=== PATIENT | female | born 1975 | race Caucasian/White ===

== ENCOUNTER 2018-08-14 10:03 | Day surgery (SDC) | payer BC, OTHER ==
[2018-08-11 17:57] VITALS: BMI 29.3
[~2018-08-14] VITALS: Ht 157.5 cm; Wt 73.5 kg
[2018-08-14] VITALS (13 sets, daily range): BP systolic 85–110; BP diastolic 51–68; PULSE 54–82; RESP 13–24; Ht 157.5 cm; Wt 73.5 kg
[~2018-08-14 10:03] MED LIST: CEFAZOLIN 2 GM/50 ML (PMX) 50 ML IVPB SCH; SOD CHLORIDE 0.9% 1,000 ML IV SCH
[2018-08-14] MEDS ORDERED: FENTAnyl 50 MCG/ML VIAL ONE (13:44)
[2018-08-14] MEDS ORDERED: MIDAZOLAM 1 MG/ML 2 ML INJ ONE (13:45)
[2018-08-14] MEDS ORDERED: ONDANSETRON 4 MG INJ ONE (13:46)
[2018-08-14] MEDS ORDERED: PROPOFOL 20 ML ONE (13:46)
[2018-08-14] MEDS ORDERED: LIDOCAINE 2% (SDV) 5 ML INJ ONE (13:46)
[2018-08-14] MEDS ORDERED: METOCLOPRAMIDE 10 MG INJ ONE (13:46)
[2018-08-14] MEDS ORDERED: CEFAZOLIN 1 GM INJ ONE (14:09)
--- NOTE | 2018-08-14 14:57 | PREAC ---
Date/Time of Note Date/Time of Note DATE: 08/14/18 TIME: 14:56 Anesthesia Eval and Record Evaluation Time Pre-Procedure Interview DATE: 08/14/18 TIME: 14:56 Age 43 Sex female NPO: 8 hrs Preoperative diagnosis breast implant deformity Planned procedure b/l removal breast implants Past Medical History Past Medical History: Includes Pulm: Smoking Hx Surgery & Anesthesia Issues No known issue Meds Anticoagulation: No Beta Lee within 24 hr: No Reason Beta Lee not given: Pt. not on B-Lee No Active Prescriptions or Reported Meds Meds reviewed: Yes Allergies Coded Allergies: No Known Allergy (Unverified , 08/14/18) Allergies Reviewed: Yes Labs/Studies Labs Reviewed: Reviewed by anesthesiologist test: Negative Pre-procedure Exam Last vitals Vital Signs Date Temp Pulse Resp B/P (MAP) Pulse Ox O2 O2 Flow FiO2 Time Delivery Rate 08/14/18 97.4 82 16 110/58 100 13:41 (75) Airway: Adequate mouth opening, Adequate thyromental dist Mallampati: Mallampati III Teeth: Normal Lung: Normal Heart: Normal ASA Physical Status ASA physical status: 2 Emergency: None Planned Anesthetic General/MAC: LMA Planned Pain Management Parenteral pain med Pre-operative Attestations Prior to commencing anesthesia and surgery, the patient was re-evaluated, there was verification of: *The patient's identity *The results of appropriate recent lab work and preoperative vital signs *The above evaluation not changing prior to induction *Anesthetic plan, risk benefits, alternative and complications discussed with patient/family; questions answered; patient/family understands, accepts and wishes to proceed. [employer] Assembler used (me) WENDY RAMIREZ MD August 14, 2018 14:57
[2018-08-14] MEDS ORDERED: MIDAZOLAM 1 MG/ML 2 ML INJ IV PRN (15:00)
[2018-08-14] MEDS ORDERED: LABETALOL HCL 20MG INJ IV PRN (15:00)
[2018-08-14] MEDS ORDERED: HYDROmorphONE 1 MG/5 ML IV SYRINGE IV PRN ×3 (15:00)
[2018-08-14] MEDS ORDERED: DIPHENHYDRAMINE 50 MG INJ IV PRN (15:00)
[2018-08-14] MEDS ORDERED: IPRATROPIUM (NEB) 0.5 MG/2.5 ML AMP HHN PRN (15:00)
[2018-08-14] MEDS ORDERED: FENTAnyl 50 MCG/ML VIAL IV PRN ×2 (15:00)
[2018-08-14] MEDS ORDERED: MEPERIDINE 25 MG INJ IV PRN (15:00)
[2018-08-14] MEDS ORDERED: LEVALBUTEROL (NEB) 1.25 MG/0.5 ML AMP HHN PRN (15:00)
[2018-08-14] MEDS ORDERED: hydrALAzine 20 MG INJ IV PRN (15:00)
[2018-08-14] MEDS ORDERED: ONDANSETRON 4 MG INJ IV PRN (15:00)
--- NOTE | 2018-08-14 16:09 | SIPON ---
Date/Time of Note Date/Time of Note DATE: 08/14/18 TIME: 16:07 Operative Report Preoperative Diagnosis Need for bilateral breast implant removal Postoperative Diagnosis Same Operation/Procedure Performed Removal of bilateral breast implants Surgeon see signature line assisted living administrator Dr Sheramn Anesthesia: general Estimated blood loss: 10 - 50 ml's Transfusion Required none Specimen Bilateral breast implants are gross only Grafts/Implants none Complications none MATI KEEN MD August 14, 2018 16:09
--- NOTE | 2018-08-14 16:29 | OPR ---
DATE OF OPERATION: 08/14/2018 PREOPERATIVE DIAGNOSES: Bilateral breast implants, need for removal of bilateral breast implants. POSTOPERATIVE DIAGNOSES: Bilateral breast implants, need for removal of bilateral breast implants. PROCEDURE: Removal of bilateral breast implants. ANESTHESIA: General. ANESTHESIOLOGIST: Dr. Gutierrez. SURGEON: Enrrique Meneses MD DESKIDDING MACHINE OPERATOR: Jose Sherman MD INDICATIONS FOR PROCEDURE: The patient is a 43-year-old female who had previously undergone bilatera l breast implantation. However, she developed encapsulation and complained of significant pain. She requested removal of the implant. She consented and was scheduled for surgery. DESCRIPTION OF PROCEDURE: The patient was brought to the operating theater and placed under general anesthesia. The breasts were prepped and draped in the usual sterile fashion bilaterally. Attention was directed to the right side. The patient's previous anchor scar in the radial portion from the n ipple-areolar border to the inframammary fold was incised with 15-blade scalpel. Subcutaneous tissue was dissected with cautery down to the capsule surrounding the implant. The capsule was widely inci sed and the implant was removed and sent for gross analysis only. Minimal bleeding was controlled wi th cautery. A #10 [place] Andrew-Sanchez drain was then brought through the right chest wall and cut t o size and laid inside the wound cavity. It was secured in place with 2-0 nylon suture in a standard fashion and the skin was then reapproximated with 4-0 Vicryl sutures in subcuticular fashion and Jian mabond was applied. Attention was then directed to the left side where in a similar fashion, the rad ial portion of the previous surgical incisional scar was incised with 15-blade scalpel. Subcutaneous tissue was dissected with cautery down to the capsule surrounding the implant. The capsule was inci sed widely. The implant was gently removed and sent for gross pathologic analysis. Minimal bleeding was controlled with cautery. A #10 [place] Andrew-Sanchez drain was brought through the left mid axil sergio line, cut to size and laid within the wound cavity. It was secured in place with 2-0 nylon sutu re in the standard fashion and the skin was then reapproximated with 4-0 Vicryl suture in subcuticula r fashion and Dermabond was applied. The patient tolerated the procedures well. The estimated blood loss was 10 mL. There were no complications and the patient was transported in stable condition to the recovery room. Dictated By: ENRRIQUE SINGH/MAURICE Conf#: [id number] DID#: [id number]
[2018-08-14] MEDS ORDERED: HYDROCODONE/APAP (7.5/325) TAB PO PRN (16:30)
--- NOTE | 2018-08-14 16:40 | PAC ---
Date/Time of Note Date/Time of Note DATE: 08/14/18 TIME: 16:39 Post-Anesthesia Notes Post-Anesthesia Note Last documented vital signs Vital Signs Date Temp Pulse Resp B/P (MAP) Pulse Ox O2 O2 Flow FiO2 Time Delivery Rate 08/14/18 97.4 82 16 110/58 100 13:41 (75) Activity: WNL Respiratory function: WNL Cardiovascular function: WNL Mental status: Baseline Pain reasonably controlled: Yes Hydration appropriate: Yes Nausea/Vomiting absent: Yes WENDY RAMIREZ MD August 14, 2018 16:40
== END 2018-08-14 18:31 | disposition home or self-care (01) ==
LOC: SDS 10:03
PROVIDERS: ATTEND Surgery Surgical Oncology
DX: T85.44XA Capsular contracture of breast implant, initial encounter (principal); T85.848A Pain due to other internal prosthetic devices, implants and grafts, initial encounter; Y81.3 Surgical instruments, materials and general- and plastic-surgery devices (including sutures) associated with adverse incidents; Y83.8 Other surgical procedures as the cause of abnormal reaction of the patient, or of later complication, without mention of misadventure at the time of the procedure
CPT/HCPCS: 19328; 88300; J0690; J1170; J2250; J2405; J2765; J3010; Z7512; Z7610